=== PATIENT | male | born 1995 | race Hispanic/Latino ===

== ENCOUNTER 2017-06-04 10:26 | Emergency (ER) | payer OTHER ==
[2017-06-04] MEDS ORDERED: Adacel (T-DAP) 0.5 ML VIAL ONE (10:39)
[2017-06-04] MEDS ORDERED: Lidocaine 1% 20 ML MDV ONE (10:39)
--- NOTE | 2017-06-04 11:31 | RAD ---
LEFT FOREARM TWO VIEWS: HISTORY: A sheet of metal fell on the forearm. FINDINGS: There is a soft tissue laceration along the more dorsal and ulnar surface of the distal ulnar shaft. On the lateral view, there is a tiny triangular bony density with a subtle area of undulation to the cortex of the ulna, which suggests that this may represent a tiny avulsed piece of bone related to t he sheet metal injury or possibly this could represent a tiny foreign body, but it does not appear me tallic. IMPRESSION: Soft tissue laceration with a tiny, triangular-shaped bony density, which could represent a tiny inju ry to the bone, as discussed above. POS: [facility]
== END 2017-06-04 12:20 | disposition home or self-care (01) ==
LOC: SCSER 10:26
DX: S52.602A Unspecified fracture of lower end of left ulna, initial encounter for closed fracture (principal); S51.812A Laceration without foreign body of left forearm, initial encounter; W26.8XXA Contact with other sharp object(s), not elsewhere classified, initial encounter; Y92.69 Other specified industrial and construction area as the place of occurrence of the external cause; Y99.0 Civilian activity done for income or pay
CPT/HCPCS: 12002; 90471; 90715; J2001